=== PATIENT | female | born 1990 | race African-American/Black ===

== ENCOUNTER → 2018-02-27 | Day surgery (SDC) | payer MEDICAID, OTHER ==
[2018-02-25 08:53] VITALS: BMI 26.4
[~2018-02-27] MED LIST: GLYCOPYRROLATE 0.2 MG/ML 2 ML VIAL ONE; LACTATED RINGERS 1,000 ML IV ONE; LACTATED RINGERS 1,000 ML IV SCH; LIDOCAINE 1% 20 ML VIAL (10MG/ML) FOR IV START INTRADERMA PRN; LIDOCAINE 1% INJ 10MG/ML (20 ML MDV) ONE; PROPOFOL 10 MG/ML 20 ML VIAL IV ONE
[2018-02-27 07:26] VITALS: TEMP 98.9
--- NOTE | 2018-02-27 08:27 | P.OP ---
Date of Procedure: 02/27/18 Preoperative Diagnosis: Abdominal pain Postoperative Diagnosis: Abdominal pain Procedure(s) Performed: EGD with biopsy Anesthesia: MAC Surgeon: Ani Crockett Estimated Blood Loss (ml): 0 Pathology: other Condition: stable (Antrum) Disposition: PACU Indications for Procedure: The patient persists with abdominal pain. It's similar to the pain she had prior to her cholecystectomy. Worse with eating. Some nausea. I recommended EGD. Description of Procedure: The patient's taken to the endoscopy suite where a gastroscope is passed per mouth to the third and fourth portions of the duodenum. Pharynx is unremarkable. The esophagus is without evidence of esophagitis or mass lesion. The GE junction is without inflammatory change. The stomach, pylorus, duodenum are otherwise without evidence of polyp, mass lesion, ulcer, mucosal abnormality. The villous pattern of the duodenum appeared normal. No evidence of hiatal hernia on retroflexion of the scope. Cold biopsies were obtained in the antrum to rule out H. pylori. She tolerated the procedure without difficulty and is taken recovery room in satisfactory condition. We'll call with report of the biopsies. Plan - Discharge Summary New Discharge Prescriptions: No Action No Known Home Medications [No Known Home Medications] Discharge Medication List No Known Home Medications [No Known Home Medications] 02/25/18 [History]
[2018-02-27 09:05] VITALS: BP 147/102; PULSE 62; RESP 16
== END | disposition home or self-care (01) ==
LOC: ORWHC2ENDO 06:55
PROVIDERS: ATTEND Surgery
DX: K31.9 Disease of stomach and duodenum, unspecified (principal); J45.909 Unspecified asthma, uncomplicated; I10 Essential (primary) hypertension; R01.1 Cardiac murmur, unspecified; E04.9 Nontoxic goiter, unspecified
CPT/HCPCS: 88305; 43239; J2001; J2704